=== PATIENT | female | born 1965 | race Caucasian/White ===

== ENCOUNTER → 2017-06-08 | Outpatient (CLI) | payer BC ==
[~2017-06-08] MED LIST: ACET-749 PO; PRLSR20 PO
--- NOTE | 2017-06-08 08:16 | DIAGNOSTIC IMAGING REPORT ---
L HEEL MIN 2 VIEWS CLINICAL HISTORY: HEEL PAIN LT pain COMPARISON: None. DISCUSSION: Small heel spur. Subtalar joint is unremarkable. No acute bony abnormality. Cortical margins are intact. There is no evidence for soft tissue swelling. IMPRESSION: Heel spur. Otherwise negative study. The above report was generated using voice recognition software. It may contain grammatical, syntax or spelling errors. Electronically signed by: Anatoliy Nix M.D. 06/08/2017 8:15 AM Dictated Date/Time: 06/08/2017 8:14 AM
== END | disposition home or self-care (01) ==
LOC: C.RADPV 07:44
PROVIDERS: ATTEND Nurse Practitioner Family
DX: M77.32 Calcaneal spur, left foot (principal)

== ENCOUNTER → 2017-12-08 | Outpatient (CLI) | payer BC | END | disposition home or self-care (01) | LOC: C.LABPVFM 13:24 | PROVIDERS: ATTEND Internal Medicine Gastroenterology | DX: R19.7 Diarrhea, unspecified (principal) ==